=== PATIENT | female | born 1970 | race Two or more races ===

== ENCOUNTER → 2016-03-31 | Outpatient (CLI) | payer OTHER ==
[2015-05-01 21:05] VITALS: BP 140/75
== END | disposition home or self-care (01) ==
LOC: SPEC 17:29
PROVIDERS: ATTEND Nurse Practitioner Women's Health
DX: N89.8 Other specified noninflammatory disorders of vagina (principal)
CPT/HCPCS: 36415

== ENCOUNTER → 2016-10-20 | Outpatient (CLI) | payer OTHER ==
[2015-05-01 21:05] VITALS: BP 140/75
[~2016-10-20] MED LIST: METF500T9 PO; OXYC-323 PO
[2016-10-20 15:20] LABS: BASO # 0.1 x10^3/uL (0.0-0.2); BASO % 1 % (0-3); EOS % 5 % (0-3); LYMPH # 2.5 x10^3/uL (1.0-4.8); LYMPH % 26 % (24-48); MEAN CORPUSCULAR HEMOGLOBIN 30 pg (25-35); MEAN CORPUSCULAR HGB CONC 34 g/dL (31-37); MEAN CORPUSCULAR VOLUME 89 fL (79-100); MONO % 7 % (0-9); NEUT % 62 % (31-73); PLATELET COUNT 391 x10^3/uL (140-400); RED BLOOD COUNT 4.61 x10^6/uL (3.50-5.40); RED CELL DISTRIBUTION WIDTH 12.9 % (11.5-14.5)
[2016-10-20 16:32] LABS: ALBUMIN 3.4 g/dL (3.4-5.0); CALCIUM 8.9 mg/dL (8.5-10.1); CREATININE 1.2 mg/dL (0.6-1.0); GFR 48.2; POTASSIUM 3.9 mmol/L (3.5-5.1); TOTAL BILIRUBIN 0.3 mg/dL (0.2-1.0)
== END | disposition home or self-care (01) ==
LOC: SURGPAT 13:38
PROVIDERS: ATTEND Surgery
DX: K80.10 Calculus of gallbladder with chronic cholecystitis without obstruction (principal)
CPT/HCPCS: 36415; 80048; 82040; 82247; 85025

== ENCOUNTER → 2016-10-25 | Day surgery (SDC) | payer OTHER ==
[~2016-10-25] VITALS: Ht 154.9 cm; Wt 70.3 kg
[~2016-10-25] MED LIST changes: +BUPIVACAINE-EPI 0.5%-1:200000 50 ML VIAL. ONE; +DESFLURANE 61 TO 120 MINUTES IH ONE; +DEXAMETHASONE SOD PHOS 20 MG/5 ML VIAL. ONE; +GLUCAGON,HUMAN RECOMBINANT 1 MG/ML VIAL. ONE; +GLYCOPYRROLATE 1 MG/5 ML VIAL. ONE; +INSULIN ASPART 100 UNIT/ML 10ML VIAL. SQ ONE; +IOHEXOL 300 MG/ML 50 ML VIAL. ONE; +IV RINGERS,LACTATED 1000ML 1,000 ML IV SCH; +KETOROLAC 60 MG/2 ML INJ FOR OR. ONE; +LIDOCAINE 1% 1 ML SYRINGE. ID PRN; +LIDOCAINE 2% PF Vial for OR 5 ML VIAL. ONE; +MIDAZOLAM HCL/PF 2 MG/2 ML VIAL. ONE; +NEOSTIGMINE 10 MG/10 ML VIAL. ONE; +ONDANSETRON PF 4 MG/2 ML VIAL. IV PRN; +ONDANSETRON PF 4 MG/2 ML VIAL. ONE; +PROCHLORPERAZINE 10 MG/2 ML VIAL. IV PRN; +PROPOFOL 20 ML IV ONE; +ROCURONIUM 100 MG/10 ML VIAL. ONE; +SURGICEL HEMOSTAT 4X8 EACH. ONE; +fentaNYL PF VIAL 100 MCG/2 ML VIAL IV PRN; +fentaNYL PF VIAL 100 MCG/2 ML VIAL ONE; +oxyCODONE/APAP 5/325 1 TAB TABLET PO PRN
[2016-10-25 07:09] LABS: NEG OBC UR NEG; POS OBC UR POS
--- NOTE | 2016-10-25 07:51 | PDOC1 ---
History and Physical Date of Admission Date of Admission DATE: 10/25/16 TIME: 07:45 Identification/Chief Complaint Chief Complaint RUQ pain Problems: Source Source: Chart review, Patient History of Present Illness History of Present Illness Gwendolyn is a 45 yo female who complained of right sided pain. US shows stones. She is brought for cholecystectomy Past Medical History Cardiovascular: No pertinent hx Pulmonary: No pertinent hx Endocrine: Diabetes Past Surgical History Past Surgical History: , Tonsillectomy Family History Family History: No Significant Social History Smoke: No ALCOHOL: rare Current Medications Current Medications Current Medications Ondansetron HCl (Zofran) 4 mg PRN Q6HRS PRN IV NAUSEA/VOMITING; Start 10/25/16 at 07:00; Stop 10/26/16 at 06:59 Fentanyl Citrate (Fentanyl 2ml Vial) 25 mcg PRN Q5MIN PRN IV MILD PAIN; Start 10/25/16 at 07:00; Stop 10/26/16 at 06:59 Fentanyl Citrate (Fentanyl 2ml Vial) 50 mcg PRN Q5MIN PRN IV MODERATE PAIN; Start 10/25/16 at 07:00; Stop 10/26/16 at 06:59 Ringer's Solution 1,000 ml @ 30 mls/hr Q24H IV Last administered on 10/25/16t 07:12; Start 10/25/16 at 07:00; Stop 10/25/16 at 18:59 Lidocaine HCl 2 ml PRN 1X PRN ID PRIOR TO IV START; Start 10/25/16 at 07:00; Stop 10/26/16 at 06:59 Prochlorperazine Edisylate (Compazine) 5 mg PACU PRN PRN IV NAUSEA, MRX1; Start 10/25/16 at 07:00; Stop 10/26/16 at 06:59 Cefazolin Sodium/ Dextrose 50 ml @ 100 mls/hr 1X ONCE IV ; Start 10/25/16 at 06:00; Stop 10/25/16 at 06:29; Status DC Cellulose 1 each STK-MED ONCE .ROUTE ; Start 10/25/16 at 07:20; Stop 10/25/16 at 07:21; Status DC Iohexol (Omnipaque 300 Mg/ml) 50 ml STK-MED ONCE .ROUTE ; Start 10/25/16 at 07: 20; Stop 10/25/16 at 07:21; Status DC Bupivacaine HCl/ Epinephrine Bitart (Marcaine-Epi 0.5%-1:308326) 50 ml STK-MED ONCE .ROUTE ; Start 10/25/16 at 07:20; Stop 10/25/16 at 07:21; Status DC Glucagon (Glucagen) 1 mg STK-MED ONCE .ROUTE ; Start 10/25/16 at 07:20; Stop 12/31 at 07:21; Status DC Midazolam HCl (Versed) 2 mg STK-MED ONCE .ROUTE ; Start 10/25/16 at 07:28; Stop 10/25/16 at 07:29; Status DC Fentanyl Citrate (Fentanyl 2ml Vial) 100 mcg STK-MED ONCE .ROUTE ; Start at 07:28; Stop 10/25/16 at 07:29; Status DC Rocuronium [place] (Zemuron) 100 mg STK-MED ONCE .ROUTE ; Start 10/25/16 at 07: 28; Stop 10/25/16 at 07:29; Status DC Lidocaine HCl (Lidocaine Pf 2% Vial) 5 ml STK-MED ONCE .ROUTE ; Start 10/25/16 at 07:29; Stop 10/25/16 at 07:30; Status DC Propofol 20 ml @ As Directed STK-MED ONCE IV ; Start 10/25/16 at 07:29; Stop 12/31 at 07:30; Status DC Dexamethasone Sodium Phosphate (Decadron) 20 mg STK-MED ONCE .ROUTE ; Start 12/31 at 07:29; Stop 10/25/16 at 07:30; Status DC Ondansetron HCl (Zofran) 4 mg STK-MED ONCE .ROUTE ; Start 10/25/16 at 07:29; Stop 10/25/16 at 07:30; Status DC Active Scripts Active Reported Metformin Hcl Er (Metformin Hcl) 500 Mg Tab.er.24h 500 Mg PO BIDWMEALS Allergies Allergies: Coded Allergies: hydrocodone (Verified Adverse Reaction, Intermediate, Nausea and Vomiting , 10/25/16) ROS Review of System negative with exception of present complaint Physical Exam General: Alert, Oriented X3, Cooperative, No acute distress HEENT: Atraumatic Lungs: Clear to auscultation Heart: RRR Abdomen: Soft, No tenderness Extremities: No clubbing Skin: No rashes Neuro: Normal speech Psych/Mental Status: Mental status NL Vitals Vitals Vital Signs Date Time Temp Pulse Resp B/P (MAP) Pulse Ox O2 Delivery O2 Flow Rate FiO2 10/25/16 06:56 99.7 81 18 95 99.7 10/25/16 06:51 113/84 Room Air Labs Labs Laboratory Tests Test 10/25/16 06:30 10/25/16 07:21 Urine Test Negative (NEG) Glucose (Fingerstick) 95 mg/dL (70-99) Laboratory Tests Test 10/25/16 06:30 10/25/16 07:21 Urine Test Negative (NEG) Glucose (Fingerstick) 95 mg/dL (70-99) VTE Prophylaxis Ordered VTE Prophylaxis Devices: Yes VTE Pharmacological Prophylaxi: No Assessment/Plan Assessment/Plan symptomatic cholelithiasis diabetes For l/s cholecystectomy. Explained risks including but not limited to bleeding, infection, injury to bowel, liver or bile ducts with resultant bile leak or bile blockage, possible need for more surgery. Also the possible need for an "open" procedure, diarrhea post op. She will proceed. CONOR AARON MD Oct 25, 2016 07:51
--- NOTE | 2016-10-25 08:56 | RAD ---
Indication protocol study. Assess for common bile duct stones. Assess for potential complication. For members of the Department of surgery fluoroscopy was provided. 4 fluoroscopic spot images were obtained. Fluoroscopy time associated with the examination was 0.37 minutes. Those intrahepatic radicles which are seen appear normal. No filling defects to suggest choledocholithiasis are seen. Contrast flows unremarkably into the duodenum. Partial filling of the pancreatic duct is noted. IMPRESSION: Normal operative cholangiogram. No evidence of choledocholithiasis
--- NOTE | 2016-10-25 09:19 | PDOC ---
BRIEF OPERATIVE NOTE Date: Oct 25, 2016 Pre-Op Diagnosis symptomatic cholelithiasis Post-Op Diagnosis same Procedure Performed l/s cholecystectomy with cholangiograms Surgeon Sheldon Length Control Tester Blaire CASTILLOA Anesthesia Type: General Blood Loss 10cc IV Fluid 1000cc Specimens Obtained GB Findings supple GB, normal grams Complications none OPerative Note Wk # [id number] CONOR AARON MD Oct 25, 2016 09:19
--- NOTE | 2016-10-25 09:21 | DISCH ---
DISCHARGE INSTRUCTIONS Condition on Discharge Condition on Discharge: Stable Activity After Discharge Activity Instructions for Disc: Activity as tolerated, Avoid exertion Lifting Instructions after Dis: No heavy lifting Driving Instructions after Dis: Do not drive (3-4 days) Diet after Discharge Diet after Discharge: Regular Wound Incision Care Wound/Incision Care: Ice to area for comfort Follow-Up Follow up with: Sheldon next week CONOR AARON MD Oct 25, 2016 09:21
[2016-10-25] MEDS: fentaNYL PF VIAL 100 MCG/2 ML VIAL IV PRN ×2 (09:27→10:00)
--- NOTE | 2016-10-25 10:10 | OP ---
DATE OF SURGERY: 10/25/2016 PREOPERATIVE DIAGNOSIS: Symptomatic cholelithiasis. POSTOPERATIVE DIAGNOSIS: Symptomatic cholelithiasis. PROCEDURE: Laparoscopic cholecystectomy with cholangiogram. SURGEON: Raul Aaron MD. [employer]IVE [employer]DITIONING MECH[employer]IC: FERMIN Pace ANESTHESIA: General endotracheal. ESTIMATED BLOOD LOSS: 10 mL. IV FLUIDS: 1 liter. INDICATIONS: The patient is a 45-year-old with right-sided pain. Ultrasound shows stones. She is brought for cholecystectomy. OPERATIVE FINDINGS: The liver was smooth and sharp. The gallbladder was supple with stones. Cholangiograms were normal. OPERATIVE REPORT: The patient was brought to the operating suite, given a general endotracheal anesthetic and the abdomen prepped and draped in usual sterile fashion. A supraumbilical incision was infiltrated with local anesthetic, incised and a 5-mm Visiport used to gain access into the abdominal cavity. Pneumoperitoneum was established. Camera inserted and inspection carried out with results as noted above. With the table in reverse Trendelenburg rolled to the left, the epigastric, midclavicular, and lateral ports were placed under direct vision. The gallbladder was retracted superolaterally and adhesions were taken down to expose the neck of the gallbladder. The cystic duct and cystic artery were identified. The cystic artery was isolated, clipped and divided. The cystic duct was clipped on the gallbladder side. Cholangiograms were made. These were normal. In light of this, the catheter was removed. The cystic duct was clipped x 3 and divided, taking care to avoid injury or compromise of the common duct. The gallbladder was freed from the bed with cautery dissection and placed in an EndoCatch bag. Hemostasis in the fossa obtained with cautery and a small piece of Surgicel. No bile leak was seen. A 19-[place] round Angel drain was brought through the epigastric port out the lateral port, sewn to the skin with a silk stitch and left in the subhepatic space for postoperative drainage. Table returned to level. Gallbladder delivered through the epigastric incision. Epigastric incision closed with interrupted 0 Vicryl suture. At 6 cm intraabdominal pressure, no bleeding from the epigastric closure or from the midclavicular port site after its removal or from the drain site. Abdomen decompressed, camera slowly removed, no bleeding seen. Skin incisions closed with subcuticular 4-0 Monocryl. Steri-Strips and sterile dressings applied. The patient awakened from her anesthetic and taken to the recovery room in satisfactory condition. RAUL AARON MD DR: JOHN/verena JOB#: [id number] / [id number]
[2016-10-25 13:00] VITALS: BP 128/63
--- NOTE | 2016-10-27 12:09 | PATHOLOGY ---
PATHOLOGY REPORT * * * * * * * * FINAL DIAGNOSIS: Gallbladder, "gallbladder and contents," cholecystectomy: - Moderate chronic cholecystitis with cholelithiasis. (SHA:mgr; 10/27/2016) REPORT ELECTRONICALLY SIGNED BY: Agustin Knowles M.D. DATE/TIME: 10/27/2016 12:08 * * * * * * * * GROSS PATHOLOGY: Received in formalin labeled "Alonso Knapp and gallbladder and contents," is a intact 8.2 x 3.4 x 2.0 cm gallbladder with glistening, blue-purple serosal surface. Opening the gallbladder reveals yellow-green granular mucosa and an average wall thickness of 0.1 cm. Calculi are present and no masses are noted grossly. Floor Clerk sections from the body and fundus are submitted along with the proximal margin in cassette A1. ([facility]; 10/25/2016) INITIAL CPT CODE(S): A; 18037 Professional services [place] [place] [address] Technical services performed by [facility] at [address] [place] [address]. SPECIMEN(S) RECEIVED: A.Gallbladder and contents CLINICAL HISTORY: Symptomatic cholelithiasis PATIENT: ALONSO KNAPP /AGE: 1011/25/1970 (Age: 45) PATIENT #: [id number] ALT CASE #: SPECIMEN COLLECTION DATE: 10/25/2016 SPECIMEN RECEIVED DATE: 10/25/2016 [facility] - [address] [place] [address] - PHONE: [phone] * * * END OF REPORT * * *
== END | disposition home or self-care (01) ==
LOC: SURG 06:24
PROVIDERS: ATTEND Surgery
DX: K80.20 Calculus of gallbladder without cholecystitis without obstruction (principal); E11.9 Type 2 diabetes mellitus without complications; Z86.39 Personal history of other endocrine, nutritional and metabolic disease; Z88.6 Allergy status to analgesic agent
CPT/HCPCS: 47563; 74300; 81025; 82962; C1769; J0690; J0780; J1100; J1885; J2250; J2405; J2704; J2710; J3010; J3490; J7030; J7120; Q9967; J1610; J2001

== ENCOUNTER → 2017-01-27 | Outpatient (CLI) | payer OTHER ==
[2016-10-25 13:00] VITALS: BP 128/63
[~2017-01-27] MED LIST changes: -BUPIVACAINE-EPI 0.5%-1:200000 50 ML VIAL. ONE; -DESFLURANE 61 TO 120 MINUTES IH ONE; -DEXAMETHASONE SOD PHOS 20 MG/5 ML VIAL. ONE; -GLUCAGON,HUMAN RECOMBINANT 1 MG/ML VIAL. ONE; -GLYCOPYRROLATE 1 MG/5 ML VIAL. ONE; -INSULIN ASPART 100 UNIT/ML 10ML VIAL. SQ ONE; -IOHEXOL 300 MG/ML 50 ML VIAL. ONE; -IV RINGERS,LACTATED 1000ML 1,000 ML IV SCH; -KETOROLAC 60 MG/2 ML INJ FOR OR. ONE; -LIDOCAINE 1% 1 ML SYRINGE. ID PRN; -LIDOCAINE 2% PF Vial for OR 5 ML VIAL. ONE; -MIDAZOLAM HCL/PF 2 MG/2 ML VIAL. ONE; -NEOSTIGMINE 10 MG/10 ML VIAL. ONE; -ONDANSETRON PF 4 MG/2 ML VIAL. IV PRN; -ONDANSETRON PF 4 MG/2 ML VIAL. ONE; -PROCHLORPERAZINE 10 MG/2 ML VIAL. IV PRN; -PROPOFOL 20 ML IV ONE; -ROCURONIUM 100 MG/10 ML VIAL. ONE; -SURGICEL HEMOSTAT 4X8 EACH. ONE; -fentaNYL PF VIAL 100 MCG/2 ML VIAL IV PRN; -fentaNYL PF VIAL 100 MCG/2 ML VIAL ONE; -oxyCODONE/APAP 5/325 1 TAB TABLET PO PRN
--- NOTE | 2017-01-28 08:34 | RAD ---
DATE: January 27, 2017 EXAM: DIGITAL SCREEN BILAT W/CAD HISTORY: Routine screening. COMPARISON: Multiple prior studies back to December 07, 2013. TECHNIQUE: 2D digital CC and MLO views of each breast were obtained. This study was interpreted with the benefit of Computerized Aided Detection (CAD). FINDINGS: The breast parenchyma is heterogeneously dense, category C, which may obscure small masses. There is no worrisome mass or area of architectural distortion. There are benign-appearing calcifications throughout both breasts that are stable. IMPRESSION: Stable mammogram with benign findings. BI-RADS CATEGORY: 2 BENIGN FINDING RECOMMENDED FOLLOW-UP: 12M 12 MONTH FOLLOW-UP PQRS compliance statement: Patient information was entered into a reminder system with a target due date for the next mammogram. Mammography is a sensitive method for finding small breast cancers, but it does not detect them all and is not a substitute for careful clinical examination. A negative mammogram does not negate a clinically suspicious finding and should not result in delay in biopsying a clinically suspicious abnormality. "Our facility is accredited by the [employer] Mammography Program."
== END | disposition home or self-care (01) ==
LOC: MAMMO 15:05
PROVIDERS: ATTEND Family Medicine
DX: Z12.31 Encounter for screening mammogram for malignant neoplasm of breast (principal)
CPT/HCPCS: G0202; 77067